=== PATIENT | female | born 1955 | race Caucasian/White ===

== ENCOUNTER 2017-11-23 15:32 | Inpatient (IN) | payer OTHER ==
[~2017-11-23] VITALS: Ht 160 cm; Wt 92.3 kg
[2017-11-23] MEDS ORDERED: SODIUM CHLORIDE 0.9% 1,000 ML IVB ONE (16:24)
[2017-11-23] MEDS ORDERED: ENOXAPARIN SOD 100 MG/1 ML SYRINGE SC ONE (16:30)
[2017-11-23] MEDS ORDERED: PANTOPRAZOLE 40 MG/10 ML VIAL IV ONE (16:30)
[2017-11-23 16:52] LABS: Basophils # (auto) 0.1 uL; Basophils % (auto) 1.2 % (0.0-2.0); Eosinophils # (auto) 0.2 uL; Eosinophils % (auto) 2.2 % (0.0-7.0); Hematocrit 44.4 % (36.0-46.0); Hemoglobin 15.1 g/dL (12.2-16.2); Lymphocytes # (auto) 1.5 uL; Lymphocytes % (auto) 18.7 % (10.0-50.0); Mean Corpuscular Hemoglobin 28.7 pg (28.0-32.0); Mean Corpuscular Volume 84.4 fL (80.0-100.0); Monocytes # (auto) 0.7 uL; Monocytes % (auto) 8.8 % (0.0-12.0); Neutrophils # (auto) 5.6 uL; Neutrophils % (auto) 69.1 % (37.0-80.0); Nucleated Red Blood Cells % 0.3 %; Platelet Count (auto) 348 10^3/uL (140-450); Red Blood Cells 5.26 10^6/uL (4.0-5.20); Red Cell Distribution Width 13.2 % (11.8-14.3); White Blood Cell 8.1 10^3/uL (4.4-10.8)
[2017-11-23 17:51] LABS: Alanine Aminotransferase 28 U/L (13-56); Albumin 4.2 g/dL (3.4-5.0); Alkaline Phosphatase 74 U/L (45-117); Anion Gap 10 (5-15); Aspartate Aminotransferase 21 U/L (15-37); BUN/Creatinine Ratio 16.9; Bilirubin, Total 0.6 mg/dL (0.2-1.0); Blood Urea Nitrogen 12 mg/dL (7-18); Calcium 8.8 mg/dL (8.5-10.1); Carbon Dioxide 26 mmol/L (21-32); Chloride 103 mmol/L (98-107); GFR African American 108 mL/min; GFR Non-African American 89 mL/min; Glucose 105 mg/dL (74-106); Lipase 120 U/L (73-393); Magnesium 2.5 mg/dL (1.6-2.6); Sodium 139 mmol/L (136-145); Total Protein 8.1 g/dL (6.4-8.2)
[2017-11-23] MEDS ORDERED: NITROGLYCERIN 0.4 MG SL TAB SL PRN (18:30)
[2017-11-23] MEDS ORDERED: MORPHINE SULFATE 4 MG/ML SYR/VIAL IV PRN (18:30)
[2017-11-23] MEDS ORDERED: POTASSIUM CHL 20MEQ/100ML 100 ML IV ONE (18:30)
[2017-11-23 19:55] VITALS: BP 137/86
[2017-11-23 21:00] VITALS: BP 137/86
[2017-11-23] MEDS ORDERED: BENAZEPRIL HCL 10 MG TAB PO ONE (22:00)
[2017-11-23] MEDS ORDERED: VALS160T43 PO (23:19)
[2017-11-24 05:01] VITALS: BP 115/59
[2017-11-24 08:00] VITALS: BP 118/58
[2017-11-24 09:00] VITALS: BP 118/58
[2017-11-24] MEDS ORDERED: METOPROLOL SUCCINATE XL 50 MG TAB PO ONE (10:00)
[2017-11-24 13:00] VITALS: BP 109/65
[2017-11-24] MEDS ORDERED: POTASSIUM CHL 20 Meq TABLET PO ONE (15:30)
[2017-11-24 16:18] VITALS: BP 118/58
[2017-11-24 17:23] LABS: Calcium 8.4 mg/dL (8.5-10.1); Potassium 3.5 mmol/L (3.5-5.1)
== END 2017-11-24 16:45 | disposition home or self-care (01) | DRG 206 ==
LOC: ER 15:32 → TELE 15:33 → TELE-WESTW 19:50
PROVIDERS: ADMIT Internal Medicine Cardiovascular Disease; ATTEND Internal Medicine Cardiovascular Disease
DX: M94.0 Chondrocostal junction syndrome [Tietze] (principal); E89.0 Postprocedural hypothyroidism; Z90.710 Acquired absence of both cervix and uterus
CPT/HCPCS: 36415; 71045; 80048; 80053; 83690; 83735; 84484; 85025; 93005; 96361; 96374; 99291; C9113; J3480

== ENCOUNTER → 2018-01-18 | Outpatient (CLI) | payer OTHER ==
[~2018-01-18] VITALS: Ht 160 cm; Wt 91.6 kg
[~2018-01-18] MED LIST: VALS160T43 PO
== END | disposition home or self-care (01) ==
LOC: Rad HDHVI 09:01
PROVIDERS: ATTEND Internal Medicine Cardiovascular Disease
DX: I37.1 Nonrheumatic pulmonary valve insufficiency (principal); I10 Essential (primary) hypertension; K74.60 Unspecified cirrhosis of liver
CPT/HCPCS: 78452; 93017; 93306; 96374; A9500